=== PATIENT | male | born 1970 | race Caucasian/White ===

== ENCOUNTER 2021-04-21 08:34 | Outpatient (CLI) | payer OTHER, SELFPAY ==
--- NOTE | ~2021-04-21 | XR_ITS ---
EXAMINATION: HAND-SALVADOR ARTHRITIS 3+VIEWS DATE: 04/21/2021 09:00 INDICATION: Rheumatoid arthritis TECHNIQUE: Posteroanterior, lateral, and oblique views of the left and of the right hands as well as a ballcatchers view of both hands were obtained. COMPARISON: None. FINDINGS: Bone alignment is normal at the bilateral hands and wrists. No fracture. Mild uniform joint space ginette rowing at the right second-fourth and left third and fourth metacarpophalangeal joints and there are periarticular erosions at the radial aspect of the base of the right second proximal phalanx and head of the right second metacarpal. Appearance and distribution would be consistent with provided histor y of rheumatoid arthritis. Additional joint space narrowing at many of the interphalangeal joints wit h distal interphalangeal joint predominance, moderate severity at the left third distal interphalange al joint and otherwise mild. Suggestion of a few small periarticular erosions along the heads of the proximal phalanges and dorsal base of several of the distal interphalangeal. There is some periartic ular soft tissue swelling about a few of the interphalangeal joints as well as at the ulnar aspect of the risks and the region of the extensor carpi ulnaris groove which suggests additional extensor car pi ulnaris tenosynovitis potentially related to rheumatoid. A few lucencies along the base of the rig ht ulnar styloid process could represent associated erosions. IMPRESSION: 1. Joint space narrowing at many of the bilateral metacarpophalangeal and interphalangeal joints ryne g with a few scattered erosions consistent with provided history of rheumatoid arthritis. 2. Soft tissue swelling along the extensor carpi ulnaris screws with possible erosions at the base of the right ulnar styloid process suggestive of extensor carpi ulnaris tenosynovitis related to rheuma toid arthritis. Reviewed, dictated and finalized at location A. S CHASER IMPRESSION: 1. Joint space narrowing at many of the bilateral metacarpophalangeal and inter phalangeal joints along with a few scattered erosions consistent with provided history of rheumatoid arthritis. 2. Soft tissue swelling along the extensor carpi ulnaris screws with possible e rosions at the base of the right ulnar styloid process suggestive of extensor c arpi ulnaris tenosynovitis related to rheumatoid arthritis.
--- NOTE | ~2021-04-21 | XR_ITS ---
EXAMINATION: XR chest 2V 04/21/2021 09:00 INDICATION: Rheumatoid arthritis PROCEDURE: 2 view chest COMPARISON: No prior studies for comparison. FINDINGS: The lungs are clear. The cardiomediastinal silhouette is within normal limits. There are no pleural effusions. There is no pneumothorax suspected. IMPRESSION: 1: NO ACUTE CARDIOPULMONARY DISEASE. Reviewed, dictated and finalized at location B. T CASTER
--- NOTE | ~2021-04-21 | XR_ITS ---
EXAMINATION: XR foot LT standing 2V, XR foot RT standing 2V DATE: 04/21/2021 09:00 INDICATION: Rheumatoid arthritis TECHNIQUE: 1. Standing dorsal plantar and lateral views of the left foot were obtained. 2. Standing dorsal plantar and lateral views of the right foot were obtained. COMPARISON: None. FINDINGS: Mild left and minimal right pes planus. Alignment is otherwise normal. No fractures. Small bilateral Achilles and plantar calcaneal spurs. Mild joint space narrowing at a few of the interphalangeal join ts. There are periarticular erosions at the medial aspect of the base of the first proximal phalanx a nd head of the first metatarsal on both the left and right. Additional small periarticular erosion at the lateral base of the right fifth proximal phalanx and lateral aspect of the head of the right fif th metatarsal likely related to provided history of rheumatoid arthritis. Periarticular soft tissue s welling at the bilateral fifth metatarsophalangeal joints. IMPRESSION: 1. Periarticular erosions at the bilateral first metatarsophalangeal and right fifth metatarsophalang eal joints consistent with provided history of rheumatoid arthritis. 2. Mild joint space narrowing at several of the interphalangeal joints at both feet which could be re lated to rheumatoid arthritis or osteoarthritis. Reviewed, dictated and finalized at location A. CLINICIAN IMPRESSION: 1. Periarticular erosions at the bilateral first metatarsophalangeal and right fifth metatarsophalangeal joints consistent with provided history of rheumatoid arthritis. 2. Mild joint space narrowing at several of the interphalangeal joints at both feet which could be related to rheumatoid arthritis or osteoarthritis.
== END 2021-04-21 08:35 | disposition home or self-care (01) ==
LOC: ANHIMG 08:37
PROVIDERS: PCP Family Medicine; Visit Provider Internal Medicine
DX: M06.329 Rheumatoid nodule, unspecified elbow (principal)
CPT/HCPCS: 71046; 73130; 73620

== ENCOUNTER 2021-11-29 08:01 | Outpatient (CLI) | payer OTHER, SELFPAY ==
--- NOTE | ~2021-11-29 | XR_ITS ---
EXAMINATION: XR lumbar spine 2-3V DATE: 11/29/2021 08:16 INDICATION: Low back pain. TECHNIQUE: 3 views of lumbar spine were obtained. COMPARISON: None. FINDINGS: There is 3 degrees dextrocurvature of thoracolumbar spine. Vertebral body heights and inter vertebral disc heights are normal. The facet joints are normal. Surgical clips in the right upper brandon drant are likely from cholecystectomy. IMPRESSION: 1. No etiology for the patient's symptoms. Reviewed, dictated and finalized at location A.
== END 2021-11-29 08:02 | disposition home or self-care (01) ==
PROVIDERS: PCP Family Medicine; Visit Provider Physician Assistant
DX: M54.50 Low back pain, unspecified (principal)
CPT/HCPCS: 72100

== ENCOUNTER 2022-01-01 15:58 | Outpatient (CLI) | payer OTHER, SELFPAY ==
--- NOTE | ~2022-01-01 | MR_ITS ---
EXAMINATION: MR lumbar spine wo con DATE: 01/01/2022 16:42 INDICATION: Low back pain. TECHNIQUE: Magnetic resonance imaging (MRI) of the lumbar spine was performed without intravenous con trast. Sequences included sagittal T2-weighted FSE, sagittal T2-weighted FS FSE, sagittal T1-weighted FSE, and axial T2-weighted FSE. COMPARISON: Lumbar spine radiographs 11/29/2021 FINDINGS: Bone alignment is normal. Vertebral body heights are normal. There is mildly decreased disc height at L4-L5. The distal spinal cord signal intensity is normal. The conus medullaris is at L1. T he following disc levels are specifically discussed: L1-L2: There is a left foraminal protrusion. There is no facet joint osteoarthritis. There is mild le ft neural foraminal stenosis. There is no central canal stenosis. L2-L3: The disc is mildly bulging. There is mild bilateral facet joint osteoarthritis. There is mild bilateral neural foraminal stenosis. There is no central canal stenosis. L3-L4: The disc is mildly bulging. There is mild bilateral facet joint osteoarthritis. There is mild bilateral neural foraminal stenosis. There is no central canal stenosis. L4-L5: The disc is bulging and has an annular fissure. There is mild bilateral facet joint osteoarthr itis. There is mild bilateral neural foraminal stenosis. There is mild central canal stenosis. L5-S1: The disc is bulging. There is mild bilateral facet joint osteoarthritis. There is mild bilater al neural foraminal stenosis. There is mild central canal stenosis. IMPRESSION: 1. Mild lumbar spondylosis. Reviewed, dictated and finalized at location A. ESSOR OF GEOLOGY IMPRESSION: 1. Mild lumbar spondylosis.
== END 2022-01-01 15:59 | disposition home or self-care (01) ==
PROVIDERS: PCP Family Medicine; Visit Provider Nurse Practitioner Family
DX: M54.50 Low back pain, unspecified (principal); M43.06 Spondylolysis, lumbar region
CPT/HCPCS: 72148

== ENCOUNTER 2022-08-20 10:12 | Emergency (ER) | payer OTHER, SELFPAY ==
--- NOTE | 2022-08-20 10:25 | ED.ABDPAIN ---
HPI - Abdominal Pain General Chief Complaint: Abdominal Pain Stated Complaint: abdominal pain Time Seen by Provider: 08/20/22 10:25 Source: patient Mode of arrival: ambulatory Limitations: no limitations History of Present Illness HPI narrative: Patient is a 51-year-old male that presents with upset stomach since Saturday. Patient states it is worse in the morning and after eating. Patient has tried Pepto and Pepcid without relief. Denies any vomiting, diarrhea. Has had minor nausea and constipation from to Saturday, did have a normal bowel movement on Saturday. Denies any fever, chills, blood in stool. Patient does report urinary frequency and mild low back pain but denies any burning with urination or change in color or odor. Reports tenderness on palpation the stomach, mostly upper epigastric. Denies drinking alcohol, eating spicy or fried foods. Patient is a type 1 diabetic but has not had any abnormal levels. Patient does not have gallbladder or appendix Related Data Home Medications Medication Instructions Recorded Confirmed lisinopril 40 mg tablet 40 mg PO DAILY 08/20/22 08/20/22 Allergies Allergy/AdvReac Type Severity Reaction Status Date / Time No Known Allergies Allergy Verified 08/20/22 10:50 Review of Systems Review of Systems: All systems reviewed & are unremarkable except as noted in HPI and below Constitutional: Constitutional: Denies body ache(s), Denies chills, Denies fatigue, Denies fever(s), Denies headache(s), Denies malaise and Denies weakness Eyes: Eyes: Denies blurry vision, Denies irritation and Denies loss of vision ENT: Denies otalgia, Denies headache(s), Denies nasal discharge, Denies sinus pain and Denies sore throat Cardiovascular: Cardiovascular: Denies chest pain, Denies irregular heart rhythm and Denies dyspnea Respiratory: Respiratory: Denies dyspnea Gastrointestinal: Gastrointestinal: Reports abdominal pain, Denies belching, Denies melena, Denies hematochezia, Denies coffee ground emesis, Reports constipation, Reports GI cramping, Denies excessive flatus, Denies heartburn, Denies diarrhea, Reports nausea and Denies vomiting Genitourinary: Genitourinary: Reports flank pain and Reports urinary frequency Musculoskeletal: Musculoskeletal: Denies back pain, Denies myalgias and Denies arthralgias Integumentary/Breasts: Skin/Breast: Denies pruritus and Denies rash Neurologic: Denies headache(s), Denies loss of vision and Denies weakness Psychiatric: Psychiatric: Reports no additional psychiatric complaints Endocrine: Endocrine: Denies fatigue PMFSH Past Medical History Medical History MARI (dyspnea on exertion) Rheumatoid arthritis with rheumatoid factor of multiple sites without organ or systems involvement Rheumatoid nodule of elbow (~2008) Wellness examination Family History Family History Father Family history of malignant neoplasm of urinary bladder Social History Social History Smoking status: Never smoker Alcohol intake: current Drinks per week: 4 Substance use: never Substance use type: does not use Living arrangements: with family Occupation/Education: occupation Gender identity (if verbalized by the patient): Male Sexual Orientation (if Verbalized by the Patient): Straight or Heterosexual Comments At time of signature, agree with nursing past medical, surgical, social and family history. There is no relevant family history pertinent to the presenting complaint. Exam Const: General: cooperative, healthy appearing, comfortable, no acute distress and well nourished Nutritional Appearance: well nourished Orientation/consciousness: patient oriented x3 Limitations: no limitations HENMT: Head: normal to inspection, normocephalic and atraumatic Ears: hearing grossly normal bilaterall
[2022-08-20 10:37] VITALS: BP 129/69; PULSE 65; RESP 20; TEMP 36.4; O2SAT 99
== END 2022-08-20 11:29 | disposition home or self-care (01) ==
PROVIDERS: Emergency Provider Nurse Practitioner Family; PCP Family Medicine
DX: R10.13 Epigastric pain (principal); M05.79 Rheumatoid arthritis with rheumatoid factor of multiple sites without organ or systems involvement
CPT/HCPCS: 81003; 99213; G0463

== ENCOUNTER → 2022-08-23 08:35 | Outpatient (CLI) | payer OTHER, SELFPAY ==
--- NOTE | ~2022-08-23 | CT_ITS ---
Non-contrast CT scan of the Abdomen and Pelvis Clinical indication: Abdominal pain Technique: 2.5 mm axial scans were obtained through the abdomen and pelvis without intravenous or or al contrast. Dose reduction technique was used on this scan by utilizing automated exposure control a nd iterative reconstruction technique. The dose-length product (DLP) was 848.75 mGy-cm. Findings: Images through the lung bases reveal 3 mm right middle lobe pulmonary nodule. There is no evidence of renal or ureteral calculi. The kidneys and the ureters are nondilated. The liver, spleen, pancreas, and adrenals appear normal. Cholecystectomy clips are present. There is no aortic aneurysm. There is no evidence of bowel obstruction. There is minimal haziness in the central mesentery with sm all shotty lymph nodes present. Images through the pelvis were performed. There is no evidence of ascites or lymphadenopathy. Urinary bladder unremarkable. Prostate gland and seminal vesicles are unremarkable. 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 3 mm right middle lobe pulmonary nodule. According to Fleischner Society criteria, no further follow- up required for a low-risk patient. For a high-risk patient, consider 12 month follow-up CT. Reviewed, dictated and finalized at [facility]. 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 3 mm right middle lobe pulmonary nodule. According to Fleischner Society criter ia, no further follow-up required for a low-risk patient. For a high-risk patie nt, consider 12 month follow-up CT.
== END ==
PROVIDERS: PCP Family Medicine; Visit Provider Physician Assistant
DX: R11.0 Nausea (principal); R10.829 Rebound abdominal tenderness, unspecified site; R10.9 Unspecified abdominal pain; R91.1 Solitary pulmonary nodule
CPT/HCPCS: 74176

== ENCOUNTER 2022-09-17 09:30 | Outpatient (CLI) | payer OTHER, SELFPAY ==
--- NOTE | ~2022-09-17 | MR_ITS ---
EXAMINATION: MRA abdomen wo/w con DATE: 09/17/2022 11:04 INDICATION: Abdominal pain. Sclerosing mesenteritis. TECHNIQUE: Magnetic resonance angiography (MRA) of the abdomen was performed without and with 18 mL M ultihance intravenous contrast. Sequences included axial and coronal 2-D FIESTA, 3-D phase contrast a t the level renal arteries and pre contrast and two sequential coronal postcontrast FSPGR from which rotating maximum intensity projection reconstructions were performed. COMPARISON: CT abdomen pelvis dated 08/23/2022 FINDINGS: Heart size is normal. No pericardial or pleural effusion. Liver, spleen, pancreas, bilateral adrenal glands and kidneys are normal. 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 The aorta, superior me senteric, bilateral renal arteries, bilateral common iliac and visualized portions of the bilateral i nternal and external iliac arteries are all normal in caliber with no evident stenosis. No pathologic ally enlarged abdominal lymphadenopathy. IMPRESSION: 1. 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 Otherwise unremarkable study. Reviewed, dictated and finalized at location A. IMPRESSION: 1. Mild stenosis at the origin of the celiac axis resulting from extrinsic comp ression from the bj of the diaphragm. Otherwise unremarkable study.
== END 2022-09-17 09:31 | disposition home or self-care (01) ==
PROVIDERS: PCP Family Medicine; Visit Provider Family Medicine
DX: R10.9 Unspecified abdominal pain (principal); K65.4 Sclerosing mesenteritis; M05.79 Rheumatoid arthritis with rheumatoid factor of multiple sites without organ or systems involvement
CPT/HCPCS: 74185; A9577; C8902

== ENCOUNTER 2024-06-08 09:04 | Outpatient (CLI) | payer OTHER, SELFPAY ==
--- NOTE | ~2024-06-08 | XR_ITS ---
PA, oblique, and lateral views of the left fourth finger CLINICAL HISTORY: Pain FINDINGS: No acute fracture or dislocation seen. Joint spaces are intact. Soft tissues are unremarkab le. IMPRESSION: Unremarkable exam. Reviewed, dictated and finalized at location . IMPRESSION: Unremarkable exam.
== END 2024-06-08 09:05 | disposition home or self-care (01) ==
PROVIDERS: PCP Family Medicine; Visit Provider Physician Assistant
DX: M79.645 Pain in left finger(s) (principal); M25.549 Pain in joints of unspecified hand
CPT/HCPCS: 73140